=== PATIENT | female | born 1935 | race Caucasian/White ===

== ENCOUNTER → 2017-10-29 10:41 | Outpatient (CLI) | payer MEDICARE, OTHER, SELFPAY ==
[2017-10-29 12:23] LABS: Anion Gap 8 (5-15); BUN 11 mg/dL (7-18); BUN/Creat Ratio 17.6 RATIO (10-20); Calcium,Total 8.7 mg/dL (8.5-10.1); Chloride 106 mmol/L (98-107); Cholesterol 202 mg/dL (200); Creatinine, Serum 0.63 mg/dL (0.55-1.02); EST Glomerular Filtration Rate 97 mL/min (>60); Est Glom Filt Rate - Afr Amer 117 mL/min (>60); Glucose 116 mg/dL (74-106); High Density Lipoprotein 46 mg/dL; Potassium 3.9 mmol/L (3.5-5.1); Sodium Level 141 mmol/L (136-145); Triglycerides 142 mg/dL; Very Low Density Lipoprotein 28 mg/dL (5-40)
== END ==
PROVIDERS: Family Provider Family Medicine; PCP Family Medicine; Visit Provider Family Medicine
DX: E11.9 Type 2 diabetes mellitus without complications (principal)
CPT/HCPCS: 36415; 80048; 80061

== ENCOUNTER → 2018-10-28 | Outpatient (CLI) | payer MEDICARE, OTHER, SELFPAY ==
[2018-10-28 13:33] LABS: Anion Gap 9 (5-15); BUN 10 mg/dL (7-18); Calcium,Total 8.8 mg/dL (8.5-10.1); Chloride 104 mmol/L (98-107); Cholesterol 242 mg/dL (200); Creatinine, Serum 0.56 mg/dL (0.55-1.02); EST Glomerular Filtration Rate 111 mL/min (>60); Est Glom Filt Rate - Afr Amer 134 mL/min (>60); Glucose 105 mg/dL (74-106); High Density Lipoprotein 47 mg/dL; Potassium 3.9 mmol/L (3.5-5.1); Sodium Level 141 mmol/L (136-145); Triglycerides 179 mg/dL; Very Low Density Lipoprotein 36 mg/dL (5-40)
== END | disposition home or self-care (01) ==
LOC: MFPLAB 10:27
PROVIDERS: Family Provider Family Medicine; PCP Family Medicine; Referring Provider Family Medicine; Visit Provider Family Medicine
DX: E11.9 Type 2 diabetes mellitus without complications (principal)
CPT/HCPCS: 36415; 80048; 80061

== ENCOUNTER 2019-03-23 16:24 | Emergency (ER) | payer MEDICARE, OTHER, SELFPAY ==
[2019-03-23 16:25] VITALS: BP 139/73; PULSE 61; RESP 17; TEMP 36.8; O2SAT 98; BMI 31.4
--- NOTE | 2019-03-23 16:44 | ED.DCSUM_ITS ---
History of Present Illness Chief Complaint: Vag Bleeding Informant: Patient Onset: Today Current Severity: Moderate Maximum Severity: Moderate Narrative: Patient presents with vaginal bleeding that started at 5 AM this morning. It has been constant. She was out of town and was using some rolled up tissue in her underwear. When she got here to the hospital she had a large clot noted and had to throw her underwear away due to being saturated with blood. She reports some mild lower abdominal cramping. She was seen by her REPRESENTATIVE PERSONAL SERVICE doctor last week and had a pelvic examination which the patient states was normal. Past Medical History - Allergies and Home Meds Allergies/Adverse Reactions: Allergies codeine Adverse Reaction (Verified 03/23/19 16:24) Unknown meperidine [From Demerol] Adverse Reaction (Verified 03/23/19 16:24) Unknown Primary Care Physician: Jaime Clark MD [Primary Care Provider] - Doctors: Dr. Crowley, REPRESENTATIVE PERSONAL SERVICE Prior records reviewed: Yes Past Medical History: - - Reviewed Surgical History: cholecystectomy, total knee arthroplasty - Bilateral Smoking Status: Never smoker Review of Systems General: Denies: Chills, Fever Eyes: Denies: Visual changes - bilaterally ENT: Denies: Bilateral ear pain Cardiovascular: Denies: Chest pain Respiratory: Denies: Dyspnea Gastrointestinal: Reports: Abdominal pain Genitourinary: Denies: Dysuria Skin: Denies: Rash Neurological: Denies: Headache Hematologic: Denies: Easy bruising Allergy: Denies: Uticaria Physical Exam Vital Signs/Narrative: Vital Signs Temp Pulse Resp BP Pulse Ox 03/23/19 16:25 98.3 F 61 17 139/73 H 98 Inital Vital Signs reviewed: Yes General: Well nourished, Well developed Head: Normocephalic ENT: Moist mucous membranes Neck: Supple Cardiovascular: Regular rate, Regular rhythm, Murmur Respiratory: No distress, CTA bilaterally Abdomen: Soft, Nontender Skin: Normal color Neurological: Alert, Oriented x3 Psychological: Normal affect Diagnostic/Tx/Re-eval Impressions Transvaginal US 03/23/19 17:22 IMPRESSION: 1. Question fundal fibroid. The uterus is otherwise unremarkable. 2. Nonvisualization the ovaries. There is no evidence of adnexal mass. 3. Prominent post void urinary bladder residual. Electronically Signed: Papo Manning DO at 18:21 EDT Tel [phone], Service support , 03/23/19 17:22 Transvaginal Non- [US] Stat Laboratory Results 03/23/19 03/23/19 03/23/19 16:48 16:48 16:48 WBC 7.3 RBC 4.46 Hgb 14.1 Hct 42.7 MCV 95.7 MCH 31.6 MCHC 33.0 RDW Std Deviation 42.0 RDW Coeff of Estrella 12.0 Plt Count 232 MPV 10.5 Immature Gran % (Auto) 0.500 Neut % (Auto) 57.9 Lymph % (Auto) 32.8 [place] % (Auto) 6.8 Eos % (Auto) 1.2 Baso % (Auto) 0.8 Absolute Neuts (auto) 4.2 Absolute Lymphs (auto) 2.40 Nucleated RBC % 0 PT 13.9 INR 1.1 APTT 30.8 Sodium 142 Potassium 3.5 Chloride 105 Carbon Dioxide 32.0 Anion Gap 5 BUN 7 Creatinine 0.58 Estim Creat Clear Calc 35.26 Est GFR (MDRD) Af Amer 126 Est GFR (MDRD) Non-Af 104 BUN/Creatinine Ratio 12.0 Glucose 121 H Calcium 9.1 - Medical Decision Making Patient's vital signs remained stable here. Laboratory and ultrasound results are discussed with patient and her daughter at bedside. I spoke with Dr. Calvert, on-call for the patient's REPRESENTATIVE PERSONAL SERVICE, was well. As long as patient is stable at this time she can be discharged home to follow-up in the office tomorrow. Patient raised concern about the animal husbandry technician telling her that her bladder was very full. She does not report the urge to urinate. Bladder scan was performed and revealed 555 cc of urine. She did get to the bedside commode and urinate. Only 30 cc of urine was remaining on post void scan. Should be discharged home with her daughter at this time. Patient is to call into the office tomorrow morning to ensure follow-up. Nurse in the office is also supposed to be calling the patient. ED Disposition - Plan for ED Patient: Disposition: Home or Assisted Living Diagnosis: Post-menopausal bleeding Instructions: Dysfunctional Uterine Bleeding Referrals: Charu Crowley DO [STAFF PHYSICIAN] - 1 Day
[2019-03-23] MEDS: 0.9% Normal Saline 1,000 ML 150 ML IV (17:01)
[2019-03-23 17:05] LABS: International Normalized Ratio 1.1; Prothrombin Time (Protime)PT. 13.9 SECONDS (11.7-14.9)
[2019-03-23 17:06] LABS: Absolute Neutrophil Count 4.2 X10^3/uL (2.0-7.7); Basophil# 0.06 X10^3/uL; Basophil% 0.8 % (0-1); Eosinophil# 0.09 X10^3/uL; Eosinophils% 1.2 % (0-5); Hematocrit 42.7 % (37-47); Hemoglobin 14.1 g/dL (12.0-15.0); Lymphocyte % 32.8 % (19-41); Mean Corpuscular Hgb 31.6 pg (27.0-32.0); Mean Corpuscular Volume 95.7 fL (81-99); Mean Platelet Vol. 10.5 fl (6.2-12.0); Monocyte% 6.8 % (0-10); NRBC Flagged by Analyzer 0 % (0-5); Neutrophil # 4.22 X10^3/uL (2.7-7.7); Neutrophil % 57.9 % (47-70); Partial Thromboplast Time 30.8 Seconds (24.1-36.2); Platelet Count 232 K/mm3 (150-450); Red Blood Count 4.46 M/mm3 (4.2-5.4); White Blood Count 7.3 K/mm3 (4.4-11.0)
[2019-03-23 17:11] LABS: Anion Gap 5 (5-15); BUN 7 mg/dL (7-18); Calcium,Total 9.1 mg/dL (8.5-10.1); Chloride 105 mmol/L (98-107); Creatinine, Serum 0.58 mg/dL (0.55-1.02); EST Glomerular Filtration Rate 104 mL/min (>60); Est Glom Filt Rate - Afr Amer 126 mL/min (>60); Estimated Creatinine Clearance 35.26 ml/min; Glucose 121 mg/dL (74-106); Potassium 3.5 mmol/L (3.5-5.1); Sodium Level 142 mmol/L (136-145)
--- NOTE | 2019-03-23 17:22 | US_ITS ---
STUDY: ULTRASOUND OF THE FEMALE PELVIS - COMPLETE REASON FOR EXAM: Female, 83 years old. Moderate post menopausal bleeding today. No pain, pressure or bloating. LMP: Unknown. TECHNIQUE: Transvaginal TECHNICAL QUALITY: Adequate. COMPARISON: None. FINDINGS: The uterus is anteverted and is in a midline position. The uterus measures 8.6 x 6.9 x 3.6 cm. There is a Nabothian cyst of the cervix. The endometrium measures 7 mm in thickness, and is hyperechoic. There is no demonstrated endometrial mass. There is a questionable hypoechoic focus in the posterior fundus seen only on lateral images. This may be artifactual or represent small fibroid. I.U.D. - The patient does not have an I.U.D. The right ovary is not visualized. There is no visualized right adnexal mass or complex lesion. The left ovary is not visualized. There is no visualized left adnexal mass or complex lesion. There is no fluid in the cul-de-sac. The post void volume of the bladder was 207 ml. Normal bladder wall. Polycystic ovary disease: No. US/Transvaginal Non- IMPRESSION: 1. Question fundal fibroid. The uterus is otherwise unremarkable. 2. Nonvisualization the ovaries. There is no evidence of adnexal mass. 3. Prominent post void urinary bladder residual. Electronically Signed: Papo Manning DO at 18:21 EDT Tel [phone], Service support ,
[2019-03-23 18:32] VITALS: BP 129/64; PULSE 64; RESP 16; O2SAT 95
--- NOTE | 2019-03-23 19:32 | NURSING ---
pt bladder scan for 555cc of urine. pt voided peach colored urine with few sm clots. re bladder scan pt and shows 33cc. dr veloz aware. pad given to pt
[2019-03-23 19:44] VITALS: BP 122/71; PULSE 71; RESP 17; O2SAT 98
== END 2019-03-23 19:44 | disposition home or self-care (01) ==
PROVIDERS: Emergency Provider Emergency Medicine; Family Provider Family Medicine; PCP Family Medicine
DX: N95.0 Postmenopausal bleeding (principal)
CPT/HCPCS: 76830; 80048; 85025; 85610; 85730; 96360; 96361; 99283; J7030; A4216

== ENCOUNTER → 2019-04-19 | Outpatient (CLI) | payer MEDICARE, OTHER, SELFPAY ==
[2019-03-23 16:25] VITALS: BMI 31.4
--- NOTE | 2019-04-19 14:46 | RAD_ITS ---
STUDY: X-RAY - CERVICAL SPINE REASON FOR EXAM: Female, 83 years old. Numbness and tingling in both hands. TECHNIQUE: 5 view(s) of the cervical spine were obtained. COMPARISON: None FINDINGS: There are degenerative changes of the anterior atlantoaxial articulation. Normal odontoid process. Normal cervical lordosis. There is diffuse demineralization of the cervical spine. There is multi-level degenerative disc disease with multilevel disc space narrowing. There is multilevel spondylosis. There is mild, multi-level osseous foraminal stenosis. The soft tissue structures are unremarkable. There is no demonstrated fracture of the cervical spine. RAD/Cerv Spine 4 or 5 Views IMPRESSION: Diffuse osteopenia along with multilevel spondylosis/degenerative disease. No acute fracture, spondylolisthesis or pars defect. Electronically Signed: Idalmis Stephenson MD at 2:49 EST , Service support ,
== END | disposition home or self-care (01) ==
PROVIDERS: Family Provider Family Medicine; PCP Family Medicine; Referring Provider Family Medicine; Visit Provider Family Medicine
DX: M79.2 Neuralgia and neuritis, unspecified (principal)
CPT/HCPCS: 72050

== ENCOUNTER 2019-05-03 11:17 | Outpatient (RCR) | payer MEDICARE, OTHER, SELFPAY ==
--- NOTE | 2019-05-07 10:19 | HP.OTEVAL ---
Patient's Visit Information JOSR MEJIA is a 83 year old F, referred to Occupational Therapy by Jaime Clark MD, with a diagnosis of bilateral hand numbness. Date of Evaluation: 05/03/19 Occupational Therapist: JARRETT Chaidez/Reji, CHT - Subjective Subjective: This 83 year old female was seen for OT eval with dx of numbness in bilateral hands. Pt states she noticed the sharp shooting pain, and numbness since Jan. Pt states she can not feel buttons, can not hold a pen, or manipulate fasteners at this time. Pt states pain and numbness interrupts her sleep. Pt states prior to Jan. she had no pain in her hands or numbness. pt would like to return to her PLOF - ADLs Dressing: Button shirt, Coat, Pants, Shoes Fasteners: Tie shoes, Buttons, Zippers, Snaps, [place] Eating: Use silverware, Cut food Bathing: Handle washcloth & soap Toileting: Manage clothing Grooming: Comb hair, Trim nails, Squeeze toothpaste on Kitchen: Chop with knife, Peel fruits & vegetables, Open jars, Open bottle caps, Ziplock bags Household: Laundry Miscellaneous: Start car, Open medication bottle, Handle money (change), Hold change, Open envelope, Carry shopping bag, Write, Sew, Jeniffer/knit/needlework Comments: pt reports she can not feel objects in her hand- pt reports frustration as this limits her IND with daily tasks - Pain bilateral hands 4 Pain Intensity Range: 3, 8 - ROM ROM Comments: ROM is WNL of wrist and digits-. 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 Med. N sensation deficits - Quick DASH-Disab of Arm,Shoulder& Hand Quick DASH Score: 79.5450 - Carpal Tunnel Syndrome Total Score of Symptom & Functional Sections: 66 - Goals Goal:: pt will demo a increase in median nerve sensation demo by a decrease in monofilament testing to 2.83 indicating good sensation for ADL performance. Goal:: by end of 1st session pt will demo understanding of using visual compensation maria m. while working with hot,cold and sharp objects. 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 therapist is rec'd a nerve conduction test performed to identify area of compression. Theapist ed. pt on visual compensation for sensation loss as pt could cut/or burn self and not know it. Therapist also ed. pt on median N. glides. Pt demo understanding of instructions. Pt stated she did stick herself with a needle and didnt feel it. Due to serverity of numbness therapist will work with compensitory maria m. but rec. nerve conduction. Rehabilitation Potential: Questionable - Anticipated Interventions Anticipated Interventions: Desensitization, Sensory Retraining, Modalities, Joint Protection/Energy Conservation, Fine Motor Coord/Danny - Visit Plan Frequency: 1-2x /Week Duration: 3 Weeks TEXT: Thank you for the opportunity to evaluate your patient. For Medicare and Medicare HMO plans, please review the plan of care and approve it. It will need to be FAXED BACK to us at [phone] for Medicare purposes. Please let me know if there are questions or concerns regarding this plan of care. Physician Signature: Date:
--- NOTE | 2019-07-19 11:32 | HP.OTDCSUM ---
HP - OT D/C Summary It has been my pleasure to treat JOSR MEJIA under orders from Jaime Clark MD, for the diagnosis of bilateral hand numbness for a total of 1 visit(s). Please see the following information for a summary of their discharge status. - Goals Patient Goals: Decrease Pain, Sleep Better, Decrease Tingling/Numbness Goal:: pt will demo a increase in median nerve sensation demo by a decrease in monofilament testing to 2.83 indicating good sensation for ADL performance. Goal:: by end of 1st session pt will demo understanding of using visual compensation maria m. while working with hot,cold and sharp objects. - D/C Information Discharge Comments: PT was seen for eval only. If there are questions or concerns regarding this patient's occupational therapy, please fell free to call me at [phone]. Thank you for the referral of this patient. Sincerely, Lawanda Jolly, OTR/L, CHT
== END 2019-05-03 19:00 | disposition home or self-care (01) ==
LOC: OT 11:17
PROVIDERS: Family Provider Family Medicine; PCP Family Medicine; Referring Provider Family Medicine; Visit Provider Family Medicine
DX: R20.0 Anesthesia of skin (principal); M50.30 Other cervical disc degeneration, unspecified cervical region
CPT/HCPCS: 97166

== ENCOUNTER → 2019-10-18 | Outpatient (CLI) | payer MEDICARE, OTHER, SELFPAY ==
[2019-10-18 18:28] LABS: Anion Gap 6 (5-15); BUN 10 mg/dL (7-18); BUN/Creat Ratio 17.9 RATIO (10-20); Calcium,Total 9.1 mg/dL (8.5-10.1); Chloride 104 mmol/L (98-107); Cholesterol 219 mg/dL (200); Creatinine, Serum 0.56 mg/dL (0.55-1.02); EST Glomerular Filtration Rate 110 mL/min (>60); Est Glom Filt Rate - Afr Amer 133 mL/min (>60); Glucose 96 mg/dL (74-106); High Density Lipoprotein 50 mg/dL; Potassium 3.8 mmol/L (3.5-5.1); Sodium Level 140 mmol/L (136-145); Triglycerides 146 mg/dL; Very Low Density Lipoprotein 29 mg/dL (5-40)
== END | disposition home or self-care (01) ==
LOC: MFPLAB 14:30
PROVIDERS: PCP Family Medicine; Visit Provider Family Medicine
DX: E11.9 Type 2 diabetes mellitus without complications (principal)
CPT/HCPCS: 36415; 80048; 80061

== ENCOUNTER → 2020-10-09 14:15 | Outpatient (CLI) | payer MEDICARE, OTHER, SELFPAY ==
[2020-10-09 18:26] LABS: Anion Gap 5 (5-15); BUN 6 mg/dL (7-18); Calcium,Total 9.4 mg/dL (8.5-10.1); Chloride 104 mmol/L (98-107); Cholesterol 230 mg/dL (200); EST Glomerular Filtration Rate 125 mL/min (>60); Est Glom Filt Rate - Afr Amer 151 mL/min (>60); Glucose 94 mg/dL (74-106); High Density Lipoprotein 58 mg/dL; Potassium 3.6 mmol/L (3.5-5.1); Sodium Level 139 mmol/L (136-145); Triglycerides 180 mg/dL; Very Low Density Lipoprotein 36 mg/dL (5-40)
== END ==
PROVIDERS: PCP Family Medicine; Referring Provider Family Medicine; Visit Provider Family Medicine
DX: I10 Essential (primary) hypertension (principal)
CPT/HCPCS: 36415; 80048; 80061

== ENCOUNTER → 2021-04-11 10:52 | Outpatient (CLI) | payer MEDICARE, OTHER, SELFPAY ==
[2021-04-11 12:46] LABS: Anion Gap 5 (5-15); BUN 9 mg/dL (7-18); BUN/Creat Ratio 15.3 RATIO (10-20); Calcium,Total 9.1 mg/dL (8.5-10.1); Chloride 104 mmol/L (98-107); Cholesterol 235 mg/dL (200); Creatinine, Serum 0.59 mg/dL (0.55-1.02); EST Glomerular Filtration Rate 103 mL/min (>60); Est Glom Filt Rate - Afr Amer 125 mL/min (>60); Glucose 104 mg/dL (74-106); High Density Lipoprotein 50 mg/dL; Sodium Level 140 mmol/L (136-145); Triglycerides 149 mg/dL; Very Low Density Lipoprotein 30 mg/dL (5-40)
== END ==
PROVIDERS: PCP Family Medicine; Referring Provider Family Medicine; Visit Provider Family Medicine
DX: E11.9 Type 2 diabetes mellitus without complications (principal)
CPT/HCPCS: 36415; 80048; 80061

== ENCOUNTER → 2021-11-01 | Outpatient (CLI) | payer MEDICARE, OTHER, SELFPAY ==
--- NOTE | 2021-11-01 12:53 | ECHOD_ITS ---
Reason For Study: Murmur, Procedure This was a 2D Doppler, Color Flow transthoracic echocardiogram. Exam performed in department. Left Ventricle Normal LV size. Mild concentric left ventricular hypertrophy. Left ventricular systolic function is normal. The estimated ejection fraction is 60 %. Stage 1 diastolic dysfunction. No regional wall motion abnormalities noted. Right Ventricle Normal RV size. Normal systolic function. Atria Normal left atrium. Normal right atrium. Mitral Valve There is moderate mitral annular calcification. Trivial eccentric mitral valve insufficiency. Tricuspid Valve Normal tricuspid valve. Unable to estimate RV systolic pressure due to inadequate jet, pulmonary artery pressure probably normal. Aortic Valve Trisinus/trileaflet aortic valve. Moderate focal aortic valve calcification. Peak aortic valve gradient 64 mmHg. Mean aortic valve gradient 36 mmHg. Severe aortic stenosis. Pulmonic Valve Normal pulmonic valve. Great Vessels Normal aortic root. The pulmonary artery is normal size. Normal inferior vena cava. Pericardium/Pleural No pericardial effusion. MMode/2D Measurements & Calculations LVIDd: 3.2 cm IVSd: 1.3 cm LVOT diam: 1.9 cm LVIDs: 1.9 cm LVPWd: 1.2 cm LVOT area: 3.0 cm2 RVDd: 2.5 cm FS: 41.2 % Ao root diam: 3.2 cm LAV(MOD-sp4): 46.9 ml LVAd ap4: 21.3 cm2 LVLd ap4: 7.0 cm EDV(MOD-sp4): 53.6 ml EDV(sp4-el): 55.1 ml LVAs ap4: 10.4 cm2 LVLs ap4: 6.1 cm ESV(MOD-sp4): 15.3 ml ESV(sp4-el): 15.3 ml EF(MOD-sp4): 71.6 % EF(sp4-el): 72.3 % LVAd ap2: 20.9 cm2 SV(MOD-sp4): 38.4 ml SV(sp4-el): 39.8 ml LVLd ap2: 5.7 cm EDV(MOD-sp2): 63.6 ml EDV(sp2-el): 65.1 ml LA A4 area: 17.8 cm2 LA dimension(2D): 3.1 cm RA A4 area: 9.7 cm2 Doppler Measurements & Calculations MV E max kamar: 73.4 cm/sec Lat Peak E' Kamar: 5.6 cm/sec Med Peak E' Kamar: 4.7 cm/sec MV A max kamar: 134.9 cm/sec E/E' lat: 13.1 E/E' med: 15.8 MV E/A: 0.54 MV V2 max: 131.0 cm/sec MV P1/2t max kamar: 86.3 cm/sec Ao V2 max: 398.7 cm/sec MV max P.9 mmHg MV P1/2t: 148.0 msec Ao max P.6 mmHg MV V2 mean: 68.4 cm/sec Ao V2 mean: 285.8 cm/sec MV mean P.2 mmHg MV dec slope: 170.7 cm/sec2 Ao mean P.1 mmHg MV V2 VTI: 44.2 cm MVA(P1/2t): 1.5 cm2 Ao V2 VTI: 90.9 cm MVA(VTI): 1.5 cm2 GRANT(I,D): 0.74 cm2 GRANT(V,D): 0.76 cm2 LV V1 max: 102.7 cm/sec SV(LVOT): 67.4 ml PA V2 max: 89.4 cm/sec LV V1 max P.2 mmHg LV V1 mean P.1 mmHg LV V1 mean: 68.1 cm/sec LV V1 VTI: 22.8 cm ECHO/Echo Complete Interpretation Summary Normal LV size. Mild concentric left ventricular hypertrophy. Left ventricular systolic function is normal. The estimated ejection fraction is 60 %. Stage 1 diastolic dysfunction. Moderate focal aortic valve calcification. Mean aortic valve gradient 36 mmHg. Severe aortic stenosis. Peak aortic valve gradient 64 mmHg. Compared to the previous echocardiogram from 2017 the aortic valve gradient is worse Ordering Physician: Jaime Clark Referring Physician: Jaime Clark Performed By: Mariajose Carballo RDCS
== END | disposition home or self-care (01) ==
LOC: CVS 12:51
PROVIDERS: PCP Family Medicine; Referring Provider Family Medicine; Visit Provider Family Medicine
DX: I35.0 Nonrheumatic aortic (valve) stenosis (principal)
CPT/HCPCS: 93306

== ENCOUNTER → 2021-12-12 | Outpatient (CLI) | payer MEDICARE, OTHER, SELFPAY ==
--- NOTE | 2021-12-12 14:25 | RAD_ITS ---
STUDY: X-RAY CHEST REASON FOR EXAM: Female, 85 years old. Aortic valve stenosis. Preop cardiac catheterization. TECHNIQUE: PA and lateral views of the chest. COMPARISON: CT of the chest, 01/26/2013. FINDINGS: The lungs are clear and expanded. This is stable calcified granuloma in the left lower lobe. There is no new mass or infiltrate. There is no demonstrated pleural abnormality. Normal size heart. Normal mediastinum and ky. Normal visualized pulmonary arteries. Normal visualized aortic arch and descending thoracic aorta. There are diffuse degenerative changes of the visualized thoracic spine. There is degenerative osteoarthritis of the bilateral shoulders. There is no demonstrated abnormality of the visualized soft tissue structures of the upper abdomen. RAD/Chest PA and Lateral IMPRESSION: Old granulomatous disease without acute cardiopulmonary process or major interval change Electronically Signed: Papo Manning DO at 19:50 EDT Reading Location ID and State: [id number] [facility] Tel [phone], Service support ,
[2021-12-12 15:23] LABS: Absolute Lymphocyte Count 2.87 X10^3/uL (0.83-4.51); Absolute Neutrophil Count 4.2 X10^3/uL (2.0-7.7); Basophil# 0.06 X10^3/uL; Basophil% 0.8 % (0-1); Eosinophil# 0.12 X10^3/uL; Eosinophils% 1.5 % (0-5); Hematocrit 42.7 % (37-47); Hemoglobin 14.4 g/dL (12.0-15.0); Lymphocyte # 2.87 X10^3/ul (0.83-4.51); Lymphocyte % 36.4 % (19-41); Mean Corp Hgb Conc 33.7 g/dL (32-36); Mean Corpuscular Volume 94.9 fL (81-99); Mean Platelet Vol. 10.7 fl (6.2-12.0); Monocyte# 0.58 X10^3/uL; Monocyte% 7.4 % (0-10); NRBC Flagged by Analyzer 0 % (0-5); Neutrophil # 4.24 X10^3/uL (2.7-7.7); Neutrophil % 53.6 % (47-70); Platelet Count 251 K/mm3 (150-450); RBC Distribution Width CV 12.1 % (11.6-14.6); RBC Distribution Width SD 41.9 fl (35.1-43.9); White Blood Count 7.9 K/mm3 (4.4-11.0)
[2021-12-12 15:51] LABS: Anion Gap 3 (5-15); BUN 9 mg/dL (7-18); Calcium,Total 9.3 mg/dL (8.5-10.1); Chloride 105 mmol/L (98-107); EST Glomerular Filtration Rate 101 mL/min (>60); Est Glom Filt Rate - Afr Amer 122 mL/min (>60); Glucose 123 mg/dL (74-106); Potassium 3.6 mmol/L (3.5-5.1); Sodium Level 140 mmol/L (136-145)
== END | disposition home or self-care (01) ==
PROVIDERS: PCP Family Medicine; Referring Provider Internal Medicine Cardiovascular Disease; Visit Provider Internal Medicine Cardiovascular Disease
DX: Z01.810 Encounter for preprocedural cardiovascular examination (principal); M19.012 Primary osteoarthritis, left shoulder; I35.0 Nonrheumatic aortic (valve) stenosis; M19.011 Primary osteoarthritis, right shoulder; I10 Essential (primary) hypertension
CPT/HCPCS: 36415; 71046; 80048; 85025

== ENCOUNTER 2021-12-24 07:38 | Day surgery (SDC) | payer MEDICARE, OTHER, SELFPAY ==
[2021-12-21 09:15] VITALS: BMI 28.7
--- NOTE | 2021-12-24 07:00 | HP_ITS ---
HPI HPI History of Present Illness Details: HyperPleasant 85-year-old lady patient and hyperlipidemia who presented in September to see you for a routine check and was noted to have a heart murmur. She denies any chest pain or shortness of breath or paroxysmal nocturnal dyspnea. She has been tired with little activity but no dizziness or diaphoresis near syncope or syncope. She underwent an echocardiographic evaluation which confirmed a worsening of her aortic valve gradient with a peak of 64 mmHg and a mean of 36 mmHg and a valve area of 0.74 cm?. She presented today for us to evaluate her. Her physical exam demonstrates clear lung bermudez, regular rate and rhythm harsh 3/6 systolic murmur noted left sternal border and no pedal edema her electrocardiogram demonstrates sinus rhythm with a rate of 77 bpm. Intake Vital Signs 12/12/21 12:30 12/12/21 12:31 Height 5 ft 3 in 5 ft 3 in Weight: 162 lb BMI 28.7 BP 131/77 H Respiration 16 Pulse 62 Pulse Oximetry (%) 98 Intake Visit Reasons: AVS (DR Corrie GUNTER) Allergies hydrocodone [From Vicodin] Allergy (Unknown, Verified 12/12/21 12:31) Vomiting lisinopril Allergy (Unknown, Verified 12/12/21 12:31) hair loss codeine Adverse Reaction (Verified 12/12/21 12:31) Unknown meperidine [From Demerol] Adverse Reaction (Verified 12/12/21 12:31) Unknown Medications amlodipine 5 mg tablet 5 mg PO DAILY 03/23/19 [History Confirmed 12/12/21] latanoprost 0.005 % eye drops 1 drp ophthalmic (eye) QHS 12/07/21 [History Confirmed 12/12/21] Ejection fraction %: 60 to 64 PFSH Medical History Essential hypertension Hyperlipidemia Lung nodule Nonrheumatic aortic (valve) stenosis Thyroid nodule Viral meningitis Surgical History History of bilateral knee arthroplasty Hx of cholecystectomy Social History Smoking Status: Never smoker ROS Const Const: Positive for fatigue ( with little activity, feels like she could drop or standing in one still); Negative for weakness, headache(s), frequent falls, difficulty sleeping or excessive sweating Eyes Eyes: Negative for loss of peripheral vision, transient loss of vision, blurry vision, double vision or tunnel vision ENT ENT: Negative for headache(s), dizziness, Nosebleed/epistaxis or balance problems Cardio Chest Pain: No Palpitations: No Edema: Bilateral (pedal edema) Muscle aches with walking: None Resp Respiratory: Negative for SOB with activity, SOB at rest, SOB orthopnea\SOB lying down, Cough or paroxysmal nocturnal dyspnea GI GI: Negative nausea, vomiting, heartburn or black,tarry stools : Negative for hematuria Musc Musc: Negative for muscle aches/ myalgia, muscle weakness, joint pain or balance problems Skin Skin: Negative non-healing lesions, rash or unusual bruising Neuro Neuro: Negative for dizziness, lightheadedness, near syncope, syncope, orthostatic symptoms, frequent falls, headache(s), weakness, confusion, memory loss, blurry vision, double vision, vertigo or lack of coordination Derek Hematologic/Lymphatic: Negative for easy bleeding or easy bruising Endo Endo: Positive for fatigue ( with little activity, feels like she could drop or standing in one still); Negative for excessive sweating, flushing or increased thirst/drinking Psych Psych: Negative for anxiety or depression Allergy Allergy/Immunology: Negative for hives and Negative for rash Cardiology Exam Const Appearance: cooperative, healthy appearing, no acute distress, well developed and well groomed Nutritional Appearance: average body habitus and well nourished Orientation: alert, awake and oriented x3 Head Head: normal to inspection, normocephalic and atraumatic Ears: hearing grossly normal bilaterally and external ears normal Nose: external nose normal, nares normal, nasal mucous membranes and turbinates normal, septum normal and no nasal discharge Face and Sinus: face symmetric Mouth: oral mucosae normal, tongue normal, oropharynx normal and moist mucous membranes Teeth and gingiva: dentition normal Throat: posterior oropharynx normal, tonsils normal and uvula midline Eyes General: appearance normal, both eyes and all related structures Eyelids: eyelids normal Conjunctivae: conjunctivae normal Pupils: PERRL, normal by confrontation and accommodation normal EOM: EOM intact bilaterally Neck Neck: normal visual inspection, trachea midline and no JVD JVD: +5 Carotids: normal carotid upstroke, bounding pulses and bruit Chest Chest inspection: normal inspection of the chest, symmetric chest movement and normal respiratory effort Auscultation: Bilateral: Clear to Auscultation Cardio Palpation: normal PMI Rate: regular rate Rhythm: regular rhythm Heart sounds: S1 normal, S2 normal and normal, physiologic split S2; Negative rub, gallop or murmur Murmur: Grade 3/6, early systolic, LLSB and radiates to carotids GI GI: normal to inspection, soft, no hepatosplenomegaly and bowel sounds present Neuro General: patient alert, patient awake, patient oriented x3, gait normal, moves all extremities and no focal sensory deficit Skin Skin: no rashes or lesions noted Extremities Pulses: Normal: Right Femoral Pulse, Left Femoral Pulse, Right Dorsalis Pedis Pulse, Left Dorsalis Pedis Pulse, Right Posterior Tibial Pulse, Left Posterior Tibial Pulse, Right Radial Pulse and Left Radial Pulse Lower Extremity Edema: None: Bilateral Musculoskel Musculoskeletal: No joint tenderness Psych Psychological: normal affect Supplemental Info Supplemental Information ECHOCARDIOGRAM 11/01/2021 Interpretation Summary Normal LV size. Mild concentric left ventricular hypertrophy. Left ventricular systolic function is normal. The estimated ejection fraction is 60 %. Stage 1 diastolic dysfunction. Moderate focal aortic valve calcification. Mean aortic valve gradient 36 mmHg. Severe aortic stenosis. Peak aortic valve gradient 64 mmHg. ECHOCARDIOGRAM 11/15/2016 Interpretation Summary Normal LV size. Left ventricular systolic function is normal. The estimated ejection fraction is 65 %. Transmitral and pulmonary venous doppler flow suggestive of impaired relaxation of left ventricle Moderate aortic stenosis, Peak aortic valve gradient 36 mmHg. Mean aortic valve gradient 18 mmHg Calculated aortic valve area (continuity equation) is 1.0 cm2. Laboratory Tests 04/11/21 10:57 Triglycerides 149 Cholesterol 235 H LDL Cholesterol 155 H HDL Cholesterol 50 Labs: LDL Cholesterol 155 mg/dL (0-130) H HDL Cholesterol 50 mg/dL (40-) Triglycerides 149 mg/dL (-199) VLDL Cholesterol 30 mg/dL (5-40) Diagnostics: Electrocardiogram Echocardiogram Pulmonary: No Data to Display Assessment and Plan Assessment and Plan (1) Nonrheumatic aortic (valve) stenosis: Status: Chronic Plan: She appears to have fairly asymptomatic severe aortic stenosis. My recommendation is to schedule a left heart catheterization to assess her coronary anatomy and then consider aortic valve replacement. This would likely be performed by the TAVR approach. Depending on the findings further recommendations will be made. (2) Carotid bruit: Status: Acute Plan: She does have evidence of a carotid bruit which may be a transmitted sound. I will like to exclude this by obtaining a carotid ultrasound. Depending on the findings further recommendations will be made. (3) Essential hypertension: Status: Chronic Plan: Her blood pressure appears to be under good control at this particular time so I would keep her on her current medical therapy. Thank you for allowing me to participate in the care of your patient. Please don't hesitate to call if any issues arise. Orders: Orders 12 Lead EKG performed by [facility] Today E11.9 - Type 2 diabetes mellitus without complications, E78.5 - Hyperlipidemia, unspecified, I10 - Essential (primary) hypertension, I35.0 - Nonrheumatic aortic (valve) stenosis Left Heart Cath/COR/LV Percut Today I35.0 - Nonrheumatic aortic (valve) stenosis Basic Metabolic Profile (BMP) Today I35.0 - Nonrheumatic aortic (valve) stenosis CBC W/Diff, Automated Today I10 - Essential (primary) hypertension Chest PA and Lateral Today I35.0 - Nonrheumatic aortic (valve) stenosis Carotid Duplex Ultrasound Today R09.89 - Other specified symptoms and signs involving the circulatory and respiratory systems Plan Details Follow Up: 3 Months (mmm) Coding Level of Care Code Off vis,new,level 4 Diagnoses Nonrheumatic aortic (valve) stenosis I35.0 Carotid bruit R09.89 Essential hypertension I10 Coding Level of Care Code Off vis,new,level 4 Diagnoses Nonrheumatic aortic (valve) stenosis I35.0 Carotid bruit R09.89 Essential hypertension I10
--- NOTE | 2021-12-24 11:40 | CL.D_ITS ---
Patient Name: JOSR MEJIA Study Date: 12/24/2021 Performing: Steven Hadrwick MD Ht: 62.99 inches 160 cm : 1935 Wt: 160.94 lbs 73 kg Age: 86 Gender: female BSA: 1.76 PROCEDURE(S) PERFORMED [id number])LHC/COR/LV CLINICAL PROFILE AND INDICATIONS Indications: Valvular Disease Heart Failure: None CONCLUSIONS Severe aortic stenosis and severe single-vessel disease involving the LAD and 2 diagonal branches. RECOMMENDATIONS Will recommend sending films to the [facility] for TAVR and PCI opinion or surgical AVR DESCRIPTION OF PROCEDURE The patient arrived to the procedure lab. The risks and benefits of the procedure as well as a full d escription of our services here and current unavailability of surgical backup were fully explained to the patient and/or their significant other prior to the catheterization. The Timeout was completed, verifying the correct patient and procedure. The patient's procedural site was prepped and draped in the usual fashion. Local anesthetic was given subcutaneously to right radial region with Lidocaine 2% . Local anesthetic was given subcutaneously to right groin region with Lidocaine 2%. Using a modified Seldinger technique, arterial access was obtained via the right radial artery, a 6Fr sheath was inse rted., arterial access was obtained via the right femoral artery, a 5Fr sheath was inserted. Right C oronary Artery selective angiography was then performed in multiple views using a 5 Fr. 3DRC (Pavel atkinson) catheter. Left Coronary Artery selective angiography was performed in multiple views using a 5 Fr. JL4 catheter. Left Ventriculography was performed in HOFF projection using a 5 Fr. [place] catheter. LV to AO pullback pressures were then recorded.The arterial sheath was pulled and a Mynx closure device was deployed for hemostasis CORONARY ANGIOGRAPHY DOMINANCE: Right Dominant LEFT HEART ASSESSMENT Left Ventricular Ejection Fraction: by LV Gram 65 % Normal LV wall motion Normal Left Ventricular systolic function LEFT MAIN: Angiographically normal LEFT ANTERIOR DESCENDING ARTERY: Complex mid LAD calcified stenosis with a first diagonal branch with mid 95% stenosis prior to bifurcation: With the mid LAD exhibiting an 80% stenotic lesion and also i nvolving the second diagonal branch. CIRCUMFLEX ARTERY: Mild luminal irregularities RIGHT CORONARY ARTERY: Mild luminal irregularities less than 30% VALVE FINDINGS: Aortic Valve Calcification - severe Peak to peak gradient of 36 mmHg COMPLICATIONS No Complications PROCEDURE MEDICATIONS Fentanyl 50 mcg IV Versed 1 mg IV Oxygen: 2 L/min via nasal cannula Heparin given IA 12/24/2021 10:53:08 Verapamil 2.5mg, 3000 units of Heparin given IA 12/24/2021 10:53:08 SUMMARY OF HEMODYNAMIC DATA Time AIR REST ECG 08:13:30 Art 129/50 (78) 10:50:45 AO 132/62 (90) SA 11:04:01 LV 174/12, 24 11:13:40 LV 177/14, 23 11:13:47 LV 174/18, 27 11:14:34 LVp 176/28, 66 11:14:47 AOp 139/61 (90) 11:14:52 Signed By Steven Hardwick MD On 12/24/2021 11:39:23 AM Steven Hardwick MD
== END 2021-12-24 14:35 | disposition home or self-care (01) ==
LOC: CLSP 07:42
PROVIDERS: PCP Family Medicine; Referring Provider Internal Medicine Cardiovascular Disease; Visit Provider Internal Medicine Cardiovascular Disease
DX: I35.0 Nonrheumatic aortic (valve) stenosis (principal); I10 Essential (primary) hypertension; Z79.899 Other long term (current) drug therapy; Z79.82 Long term (current) use of aspirin
CPT/HCPCS: 93458; 99152; 99153; J7030; C1769; C1887; C1894; Q9967

== ENCOUNTER → 2022-02-22 | Outpatient (CLI) | payer MEDICARE, OTHER, SELFPAY ==
--- NOTE | 2022-02-22 07:48 | CDU_ITS ---
Reason For Study: BRUIT Rt. Velocities/BP Lt. Velocities/BP Prox CCA 81.2/14.2 cm/sec. Prox CCA 102.7/20.4 cm/sec. Mid CCA 80.1/16.4 cm/sec. Mid CCA 79.3/11.8 cm/sec. Dist CCA 70.2/16.4 cm/sec. Dist CCA 91.6/16.7 cm/sec. Prox ICA 87.5/20.4 cm/sec. Prox ICA 65.8/13.0 cm/sec. Mid ICA 105.1/27.8 cm/sec. Mid ICA 87.9/26.5 cm/sec. Dist ICA 106.3/29.0 cm/sec. Dist ICA 96.5/21.6 cm/sec. Rt. ICA/CCA = 106.3/80.1=1.3. Lt. ICA/CCA = 96.5/79.3=1.2. Prox ECA 98.5/5.1 cm/sec. Prox ECA 85.5/8.1 cm/sec. Rt. Vert. 38.6/9.9 cm/sec. Lt. Vert. 48.8/13.2 cm/sec. Right Extracranial There is homogeneous, smooth atherosclerotic plaque noted in the right common carotid artery. There is heterogeneous, smooth atherosclerotic plaque noted in the right internal carotid artery. The atherosclerotic plaque causes acoustic shadowing. There is intimal thickening but no significant atherosclerotic plaque noted in the right external carotid artery. Antegrade flow is noted in the right vertebral artery. Left Extracranial There is homogeneous, smooth atherosclerotic plaque noted in the left common carotid artery. There is homogeneous, smooth atherosclerotic plaque noted in the left internal carotid artery. The left internal carotid artery is very tortuous. There is intimal thickening but no significant atherosclerotic plaque noted in the left external carotid artery. Antegrade flow is noted in the left vertebral artery. Procedure Carotid Duplex [id number]. Exam performed in department. VL/Carotid Duplex Ultrasound Interpretation Summary Mild (<50%) stenosis right extracranial internal carotid. Mild (<50%) stenosis left extracranial internal carotid. Patent and antegrade vertebrals bilaterally. Limited on right due to calcific shadowing. Ordering Physician: Steven Hardwick Referring Physician: Jaime Clark Performed By: Carmina Perez RDCS, RVT
== END | disposition home or self-care (01) ==
LOC: CVS 07:44
PROVIDERS: PCP Family Medicine; Referring Provider Internal Medicine Cardiovascular Disease; Visit Provider Internal Medicine Cardiovascular Disease
DX: R09.89 Other specified symptoms and signs involving the circulatory and respiratory systems (principal)
CPT/HCPCS: 93880

== ENCOUNTER → 2022-04-15 | Outpatient (CLI) | payer MEDICARE, OTHER, SELFPAY ==
[2022-04-15 12:05] LABS: Absolute Lymphocyte Count 2.25 X10^3/uL (0.83-4.51); Absolute Neutrophil Count 4.1 X10^3/uL (2.0-7.7); Basophil# 0.04 X10^3/uL; Basophil% 0.6 % (0-1); Eosinophil# 0.08 X10^3/uL; Eosinophils% 1.2 % (0-5); Hematocrit 42.5 % (37-47); Hemoglobin 13.8 g/dL (12.0-15.0); Lymphocyte # 2.25 X10^3/ul (0.83-4.51); Lymphocyte % 32.7 % (19-41); Mean Corp Hgb Conc 32.5 g/dL (32-36); Mean Corpuscular Hgb 31.4 pg (27.0-32.0); Mean Corpuscular Volume 96.6 fL (81-99); Mean Platelet Vol. 11.1 fl (6.2-12.0); Monocyte# 0.43 X10^3/uL; Monocyte% 6.2 % (0-10); NRBC Flagged by Analyzer 0 % (0-5); Neutrophil # 4.07 X10^3/uL (2.7-7.7); Platelet Count 252 K/mm3 (150-450); RBC Distribution Width CV 11.9 % (11.6-14.6); RBC Distribution Width SD 42.5 fl (35.1-43.9); White Blood Count 6.9 K/mm3 (4.4-11.0)
[2022-04-15 12:32] LABS: Anion Gap 6 (5-15); BUN 8 mg/dL (7-18); BUN/Creat Ratio 13.8 RATIO (10-20); Calcium,Total 9.5 mg/dL (8.5-10.1); Chloride 105 mmol/L (98-107); Creatinine, Serum 0.58 mg/dL (0.55-1.02); EST Glomerular Filtration Rate 105 mL/min (>60); Est Glom Filt Rate - Afr Amer 126 mL/min (>60); Glucose 110 mg/dL (74-106); Potassium 3.8 mmol/L (3.5-5.1); Sodium Level 140 mmol/L (136-145); Thyroid Stim Hormone (TSH) 2.27 uIU/mL (0.358-3.74)
== END | disposition home or self-care (01) ==
LOC: MFPLAB 09:52
PROVIDERS: PCP Family Medicine; Referring Provider Family Medicine; Visit Provider Family Medicine
DX: I10 Essential (primary) hypertension (principal); R53.83 Other fatigue
CPT/HCPCS: 36415; 80048; 84443; 85025

== ENCOUNTER → 2022-10-14 | Outpatient (CLI) | payer MEDICARE, OTHER, SELFPAY ==
[2022-10-14 16:22] LABS: ALB/GLOB Ratio 1.1 RATIO (0.9-2.4); AST(SGOT) 27 U/L (15-37); Alanine Aminotransfer ALT/SGPT 21 U/L (13-56); Albumin, Serum 3.7 g/dL (3.2-5.0); Alkaline Phosphatase 58 U/L (45-117); Anion Gap 8 (5-15); BUN 11 mg/dL (7-18); BUN/Creat Ratio 22.1 RATIO (10-20); Calcium,Total 9.3 mg/dL (8.5-10.1); Chloride 105 mmol/L (98-107); Cholesterol 220 mg/dL (200); EST Glomerular Filtration Rate 125 mL/min (>60); Est Glom Filt Rate - Afr Amer 151 mL/min (>60); Globulin 3.4 g/dL (2.2-4.2); Glucose 100 mg/dL (74-106); High Density Lipoprotein 56 mg/dL; Potassium 4.7 mmol/L (3.5-5.1); Protein, Total 7.1 g/dL (6.4-8.2); Sodium Level 143 mmol/L (136-145); Triglycerides 129 mg/dL; Very Low Density Lipoprotein 26 mg/dL (5-40)
== END | disposition home or self-care (01) ==
LOC: MTLAB 14:05
PROVIDERS: PCP Family Medicine; Referring Provider Family Medicine; Visit Provider Family Medicine
DX: E11.9 Type 2 diabetes mellitus without complications (principal)
CPT/HCPCS: 36415; 80053; 80061

== ENCOUNTER 2023-04-14 11:12 | Outpatient (CLI) | payer MEDICARE, OTHER, SELFPAY ==
[2023-04-14 12:52] LABS: Anion Gap 4 (5-15); BUN 11 mg/dL (7-18); BUN/Creat Ratio 22.5 RATIO (10-20); Chloride 105 mmol/L (98-107); Cholesterol 231 mg/dL (200); Creatinine, Serum 0.49 mg/dL (0.55-1.02); EST Glomerular Filtration Rate 127 mL/min (>60); Est Glom Filt Rate - Afr Amer 154 mL/min (>60); Glucose 114 mg/dL (74-106); High Density Lipoprotein 62 mg/dL; Potassium 3.7 mmol/L (3.5-5.1); Sodium Level 139 mmol/L (136-145); Triglycerides 110 mg/dL; Very Low Density Lipoprotein 22 mg/dL (5-40)
== END 2023-04-14 23:59 | disposition home or self-care (01) ==
PROVIDERS: PCP Family Medicine; Referring Provider Family Medicine; Visit Provider Family Medicine
DX: Z00.00 Encounter for general adult medical examination without abnormal findings (principal)
CPT/HCPCS: 36415; 80048; 80061

== ENCOUNTER → 2024-10-11 | Outpatient (CLI) | payer OTHER, MEDICARE, SELFPAY ==
[2024-10-11 18:51] LABS: ALB/GLOB Ratio 1.3 RATIO (0.9-2.4); AST(SGOT) 24 U/L (<=31); Alanine Aminotransfer ALT/SGPT 15 U/L (<=34); Albumin, Serum 4.1 g/dL (3.4-4.8); Alkaline Phosphatase 69 U/L (35-104); Anion Gap 12 (5-15); BUN 11 mg/dL (4-19); BUN/Creat Ratio 19.5 RATIO (10-20); Calcium,Total 9.6 mg/dL (7.6-11.0); Carbon Dioxide 26.8 mmol/L (21.0-32.0); Chloride 101 mmol/L (98-108); Cholesterol 239 mg/dL (<=200); Creatinine, Serum 0.58 mg/dL (0.70-1.20); EST Glomerular Filtration Rate 87 (>60); Globulin 3.3 g/dL (2.2-4.2); Glucose 101 mg/dL (70-99); High Density Lipoprotein 61 mg/dL; Low Density Lipoprotein Calc. 155 mg/dL; Protein, Total 7.4 g/dL (5.9-8.4); Sodium Level 140 mmol/L (133-145); Total Bilirubin 0.64 mg/dL (0.00-1.30); Triglycerides 112 mg/dL; Very Low Density Lipoprotein 22 mg/dL (5-40); cholesterol:hdl ratio screen 3.91
[2024-10-11 19:14] LABS: Hemoglobin A1c 6.2 % (<=5.6)
== END | disposition home or self-care (01) ==
LOC: MFPLAB 14:08
PROVIDERS: PCP Family Medicine; Referring Provider Family Medicine; Visit Provider Family Medicine
DX: E11.9 Type 2 diabetes mellitus without complications (principal)
CPT/HCPCS: 36415; 80053; 80061; 83036

== ENCOUNTER → 2025-04-11 | Outpatient (CLI) | payer MEDICARE, OTHER, SELFPAY ==
[2025-04-11 12:30] LABS: AST(SGOT) 22 U/L (<=31); Alanine Aminotransfer ALT/SGPT 14 U/L (<=34); Albumin, Serum 4.2 g/dL (3.4-4.8); Alkaline Phosphatase 56 U/L (35-104); Anion Gap 11 (5-15); BUN 12 mg/dL (4-19); BUN/Creat Ratio 20.6 RATIO (10-20); Calcium,Total 9.5 mg/dL (7.6-11.0); Carbon Dioxide 28.2 mmol/L (21.0-32.0); Chloride 103 mmol/L (98-108); Cholesterol 211 mg/dL (<=200); Globulin 2.9 g/dL (2.2-4.2); Glucose 112 mg/dL (70-99); Low Density Lipoprotein Calc. 133 mg/dL; Potassium 4.1 mmol/L (3.3-5.1); Triglycerides 84 mg/dL; Very Low Density Lipoprotein 17 mg/dL (5-40); cholesterol:hdl ratio screen 3.35
== END | disposition home or self-care (01) ==
LOC: MFPLAB 09:10
PROVIDERS: PCP Family Medicine; Visit Provider Family Medicine
DX: I10 Essential (primary) hypertension (principal)
CPT/HCPCS: 36415; 80053; 80061